=== PATIENT | female | born 1940 | race Caucasian/White ===

== ENCOUNTER 2016-10-26 19:53 | Inpatient (IN) | payer OTHER ==
[~2016-10-26] VITALS: Ht 157.5 cm; Wt 79.8 kg
[~2016-10-26 19:53] MED LIST: ASA81 PO; LEVE500T77 PO; LIP20 PO
[2016-10-26 20:08] VITALS: BP_SYST 147
--- NOTE | 2016-10-26 20:25 | NUR ---
Patient to ER bed 3 to gown for evaluation. Side rails up. Report given to GENE Ventura.
[2016-10-26 20:31] LABS: BILIRUBIN,URINE 1+ (NEGATIVE); BLOOD, URINE 2+ (NEGATIVE); CLARITY/URINE SL HAZY (CLEAR); COLOR,URINE YELLOW (YELLOW); GLUCOSE,URINE NEGATIVE (NEGATIVE); KETONES,URINE TRACE (NEGATIVE); LEUKOCYTE ESTERASE ,URINE 1+ (NEGATIVE); NITRITE, URINE NEGATIVE (NEGATIVE); PH,URINE 5.5 (5.0-8.0); PROTEIN URINE TRACE (NEGATIVE)
--- NOTE | 2016-10-26 20:37 | NUR ---
Patient complains of abdominal pain on and off x 1 week. No bowel movement for 3 days but prior to that patient complaints of diarrhea. Patient reports nausea but no vomiting. Patient is ALOC x 4 and ambulatory. Pain 4/10. No other complaints/injuries per patient or as noted.
[2016-10-26] MEDS ORDERED: NACL 0.9% 1,000 ML IV ONE ×2 (20:41→23:00)
--- NOTE | 2016-10-26 20:41 | NUR ---
Dr. Drivre at bedside.
[2016-10-26] MEDS ORDERED: MORPHINE 4 MG/ML INJ. SYRINGE IVP ONE (20:45)
[2016-10-26] MEDS ORDERED: PROMETHAZINE HCL 25 MG/ML AMP IVP ONE (20:45)
[2016-10-26 20:59] LABS: WBC,URINE 20-50 /HPF (0-3)
[2016-10-26 21:00] LABS: BACTERIA,URINE MODERATE /HPF (None Seen); MUCUS,URINE 3+ /LPF (None Seen); OTHER CASTS, URINE WBC CASTS 1+ /LPF (None Seen)
[2016-10-26 21:29] LABS: BASOPHILS % (AUTO) 0.2 % (0.0-2.0); EOSINOPHILS # (AUTO) 0.1 K/uL (0.0-0.4); EOSINOPHILS % (AUTO) 1.1 % (0.0-4.0); HEMATOCRIT 35.8 % (36-48); HEMOGLOBIN 11.7 g/dL (12.0-16.0); LYMPHOCYTES # (AUTO) 0.9 K/uL (1.0-5.5); MEAN CORPUSCULAR HEMOGLOBIN 27 pg (27-31); MEAN CORPUSCULAR HGB CONC 33 % (32-36); MEAN CORPUSCULAR VOLUME 82 fL (79.0-98.0); MONOCYTES # (AUTO) 0.7 K/uL (0.0-1.0); MONOCYTES % (AUTO) 7.8 % (1.7-9.3); NEUTROPHILS % (AUTO) 80.9 % (40.0-70.0); PLATELET COUNT (AUTO) 368 K/uL (130-430); RED BLOOD CELL COUNT(AUTO) 4.34 MIL/uL (4.2-6.2); RED CELL DISTRIBUTION WIDTH 14.7 % (9.0-15.0); WHITE BLOOD COUNT (AUTO) 8.7 K/uL (4.8-10.8)
[2016-10-26 21:54] LABS: ANION GAP 9 (5-15); CALCIUM 9.8 mg/dL (8.4-11.0); CHLORIDE 103 mmol/L (98-107); CREATININE 1.16 mg/dL (0.55-1.30); GLUCOSE 176 mg/dL (70-99); POTASSIUM 3.7 mmol/L (3.5-5.1); SODIUM SERUM 141 mmol/L (136-145); UREA NITROGEN, BLOOD 15 mg/dL (8-21)
[2016-10-26 21:58] LABS: ALANINE AMINOTRANSFERASE 358 U/L (12-78); ALBUMIN 3.4 g/dL (3.4-4.8); AMYLASE 56 U/L (0-100); ASPARTATE AMINOTRANSFERASE 268 U/L (10-37); INR 1.1 (0.8-1.2); LIPASE 291 U/L (73-393); PROTHROMBIN TIME 11.9 SECS (9.5-12.5); TOTAL BILIRUBIN 1.3 mg/dL (0.0-1.0)
[2016-10-26] MEDS ORDERED: cefTRIAXone 2 GM VIAL ONE ×2 (22:21)
[2016-10-26] MEDS ORDERED: SITA1TAB9 PO (22:49)
[2016-10-26] MEDS ORDERED: LOSA50TA3 PO (22:49)
--- NOTE | 2016-10-26 22:49 | NUR ---
Medication reconciliation completed with information provided by patient. Any prior medication reconciliation on file was reviewed and corrected.
--- NOTE | 2016-10-26 22:53 | NUR ---
Answer the phone to get orders from Dr. Drew and he stated that he will come into see patient. He did not give admitting orders.
[2016-10-26] MEDS ORDERED: PROMETHAZINE HCL 25 MG/ML AMP IVP PRN (23:30)
[2016-10-26] MEDS ORDERED: ACETAMINOPHEN 325 MG TABLET PO PRN (23:30)
[2016-10-26] MEDS ORDERED: DEXTROSE 50% JECT 50 ML DISP.SYRIN IVP PRN (23:30)
[2016-10-26 23:38] VITALS: BP_SYST 141
--- NOTE | 2016-10-26 23:38 | NUR ---
Admission Note Received patient from ER with diagnosis of ABDOMINAL PAIN, QUESTION ABDOMINAL ABCESS, UTI. Initial Plan of Care discussed-patient verbalized understanding. Family at bedside. Oriented to room, call light, pain management and safety.
--- NOTE | 2016-10-26 23:38 | NUR ---
Patient will be admitted to care of Dr. Grimes . Admitted to Med Surg unit. Will go to room 102 B. Belongings list completed. Summary report printed. Report will be given at bedside to GENE Fraser.
--- NOTE | 2016-10-26 23:40 | NUR ---
RN Note Pt was instructed on nothing by mouth except medications and pt verbalized understanding. Skin is warm and dry to touch. No signs or symptoms of hypoglycemia or hyperglycemia noted. Fall and safety precautions are in place. Call light is with pt and bed alarm on. Will continue to monitor pt.
--- NOTE | 2016-10-26 23:55 | NUR ---
CONSULTATION PAGED REASON FOR CONSULTATION:ABDOMINAL PAIN WAS CONSULT CALLED?Y PERSON WHO WAS NOTIFIED:LAURA CONSULTING PHYSICIAN:ERIKA MEDEROS HYDRAULIC TESTER SPECIALTY:ID HYDRAULIC TESTER PHONE NUMBER:[phone]
--- NOTE | 2016-10-26 23:57 | NUR ---
CONSULTATION PAGED REASON FOR CONSULTATION:ABDOMINAL PAIN WAS CONSULT CALLED?Y PERSON WHO WAS NOTIFIED:LAURA CONSULTING PHYSICIAN:STEVIE LOPEZ (FEROZ ASIF CHRISTIAN COUNSELOR) CURVE SAW OPERATOR SPECIALTY:GI CURVE SAW OPERATOR PHONE NUMBER:[phone]
--- NOTE | 2016-10-27 00:13 | NUR ---
Blood Sugar Accucheck 116 and no Insulin coverage noted. Skin remains warm and dry to touch. IVF is infusing well in [facility].
[2016-10-27] MEDS: NACL 0.9% 1,000 ML IV SCH ×2 (00:14→12:32)
--- NOTE | 2016-10-27 02:00 | NUR ---
Rounds Pt is sleeping without any distress noted. IVF is infusing well in [facility]. Call light is with pt and bed alarm is on.
--- NOTE | 2016-10-27 04:00 | NUR ---
Rounds Pt is resting quietly in bed. Fall and safety precautions are in place.
--- NOTE | 2016-10-27 05:46 | NUR ---
CONSULT: CONSULT CALLED FOR DR. MUJICA I SPOKE WITH JAVON. REASON FOR CONSULT: ABD PAIN NUMBER I CALLED: [phone] ALVES
[2016-10-27] MEDS ORDERED: PIPERACILLIN/TAZOBACTAM 4.5 GM/VIAL (ZOSYN) IV ONE (05:59)
[2016-10-27] MEDS: PIPERACILLIN/TAZO 4.5GM/DEX-IS 100 ML IV SCH ×3 (06:00→21:29)
[2016-10-27 06:24] LABS: BASOPHILS % (AUTO) 0.4 % (0.0-2.0); EOSINOPHILS # (AUTO) 0.1 K/uL (0.0-0.4); EOSINOPHILS % (AUTO) 0.8 % (0.0-4.0); HEMATOCRIT 31.8 % (36-48); HEMOGLOBIN 10.4 g/dL (12.0-16.0); LYMPHOCYTES % (AUTO) 12.9 % (20.5-51.5); MEAN CORPUSCULAR HEMOGLOBIN 27 pg (27-31); MEAN CORPUSCULAR HGB CONC 33 % (32-36); MEAN CORPUSCULAR VOLUME 82 fL (79.0-98.0); MONOCYTES # (AUTO) 0.7 K/uL (0.0-1.0); MONOCYTES % (AUTO) 8.7 % (1.7-9.3); NEUTROPHILS # (AUTO) 5.9 K/uL (1.8-7.7); NEUTROPHILS % (AUTO) 77.2 % (40.0-70.0); PLATELET COUNT (AUTO) 324 K/uL (130-430); RED BLOOD CELL COUNT(AUTO) 3.86 MIL/uL (4.2-6.2); RED CELL DISTRIBUTION WIDTH 14.9 % (9.0-15.0); WHITE BLOOD COUNT (AUTO) 7.7 K/uL (4.8-10.8)
[2016-10-27 06:32] LABS: ALANINE AMINOTRANSFERASE 368 U/L (12-78); ALBUMIN 2.8 g/dL (3.4-4.8); ANION GAP 9 (5-15); ASPARTATE AMINOTRANSFERASE 326 U/L (10-37); CALCIUM 8.6 mg/dL (8.4-11.0); CHLORIDE 106 mmol/L (98-107); GLUCOSE 163 mg/dL (70-99); SODIUM SERUM 141 mmol/L (136-145); TOTAL BILIRUBIN 1.3 mg/dL (0.0-1.0); TOTAL PROTEIN, SERUM 6.8 g/dL (6.4-8.3); UREA NITROGEN, BLOOD 11 mg/dL (8-21)
--- NOTE | 2016-10-27 06:34 | NUR ---
Closing Note Pt is resting comfortably in bed. All pt's needs were attended to. No fall or injury noted this shift. Accucheck 148 this AM and no Insulin coverage needed. Skin remains warm and dry to touch. Will endorse to day shift nurse.
--- NOTE | 2016-10-27 08:00 | NUR ---
INITIAL NOTE PT SLEEPING, EASY TO AROUSE, NO S/S OF PAIN OR DISTRESS NOTED, IV TO LAC INTACT AND INFUSING FLUIDS AT ORDERED RATE, NO S/S OF INFILTRATION NOTED, PT AWARE SHE IS NPO EXCEPT MEDICATIONS WITH SIP OF WATER, SCDS IN PLACE, PLAN OF CARE DISCUSSED WITH PATIENT, PT VERBALIZED UNDERSTANDING, PT REORIENTED TO USE OF CALL LIGHT AND IT IS PLACED WITHIN REACH, SAFETY MEASURES IN PLACE, BED IN LOW POSITION AND LOCKED, WILL FOLLOW UP
[2016-10-27 08:02] VITALS: BP_SYST 119
--- NOTE | 2016-10-27 08:30 | NUR ---
DR AMARAL AT BEDSIDE, NEW ORDERS RECEIVED, PT MADE AWARE AND VERBALIZED UNDERSTANDING, WILL CARRY OUT AND FOLLOW UP
--- NOTE | 2016-10-27 09:30 | NUR ---
DR ALVES MAKING ROUNDS
[2016-10-27] MEDS ORDERED: POTASSIUM CHLORIDE 40 MEQ in NS 250 ML IV SCH (09:31)
[2016-10-27] MEDS: PANTOPRAZOLE SODIUM 40 MG TAB PO SCH (09:38)
[2016-10-27] MEDS: levETIRAcetam 500 MG TABLET PO SCH (09:38)
--- NOTE | 2016-10-27 10:00 | NUR ---
ROUNDS PT ASSISTED TO BEDSIDE CHAIR, NO S/S OF DISTRESS OR PAIN, VSS, PT STATES SHE HAS NO OTHER NEEDS AT THIS TIME, WILL FOLLOW UP
--- NOTE | 2016-10-27 10:40 | NUR ---
DR AGUILA MAKING ROUNDS
[2016-10-27 11:34] VITALS: BP_SYST 129
--- NOTE | 2016-10-27 12:00 | NUR ---
ACCUCHECK 121, NO COVERAGE NEEDED, PT TO REMAIN NPO AT THIS TIME, FAMILY AT BEDSIDE, PT AND FAMILY UPDATED ON PLAN OF CARE, VERBALIZED UNDERSTANDING, CALL LIGHT PLACED WITHIN REACH, WILL CONTINUE TO MONITOR
--- NOTE | 2016-10-27 13:00 | NUR ---
PATIENT PICKED UP FOR PROCEDURE, AWAITING RETURN
[2016-10-27 15:57] VITALS: BP_SYST 134
--- NOTE | 2016-10-27 16:00 | NUR ---
PT RETURNED FROM PROCEDURE, PER RADIOLOGIST, PROCEDURE IS INCOMPLETE AND TECH WILL RETURN TO GET PATIENT IN A FEW HOURS, WILL ADMINISTER IV ANTIBIOTICS, PT SITUATED IN BED, CALL LIGHT WITHIN REACH, WILL FOLLOW UP
[2016-10-27] MEDS: metroNIDAZOLE 250 mg/NS 50 ML IV SCH ×2 (16:06→21:29)
--- NOTE | 2016-10-27 17:30 | NUR ---
ACCUCHECK 109, NO COVERAGE NEEDED PER SLIDING SCALE. PT AWAKE, FAMILY AT BEDSIDE, IV FLUIDS INFUSING TO RIGHT HAND, NEW IV SITE, PATENT AND INTACT, WILL CONTINUE TO MONITOR
--- NOTE | 2016-10-27 18:40 | NUR ---
DR MUJICA AT BEDSIDE, NEW ORDERS RECEIVED AND CARRIED OUT, WILL ENDORSE TO FOLLOWING SHIFT TO FOLLOW UP ON ORDERS.
--- NOTE | 2016-10-27 19:00 | NUR ---
CLOSING NOTE PT SITTING UP IN BED, NO COMPLAINT OF PAIN OR DISCOMFORT, IV FLUIDS INFUSING TO RIGHT HAND, SITE PATENT AND INTACT, NO S/S OF INFILTRATION, ALL NEEDS ATTENDED TO THROUGH OUT SHIFT, SAFETY MEASURES MAINTAINED, DIET ADVANCED TO CLEAR LIQUIDS NO REDS, CALL LIGHT WITHIN REACH, BED IN LOW POSITION AND LOCKED, WILL GIVE REPORT TO FOLLOWING SHIFT.
[2016-10-27 19:05] VITALS: BP_SYST 136
--- NOTE | 2016-10-27 19:05 | NUR ---
Initial Round Received patient in bed awake, alert oriented x4. V/S are WNL. No s/s of any pain or distress noted. IV noted to R hand g 22, no infiltrate and with good blood return. All extremities are strong BRP. Discussed plan of care with pt and verbalized understanding. Bed in low position with call light within reach, will cont to monitor.
--- NOTE | 2016-10-27 21:05 | NUR ---
Rounds Patient is awake with family at bedside. No s/s of any distress noted. Call light within reach, will cont to monitor.
[2016-10-27] MEDS: ATORVASTATIN 20 MG TABLET PO SCH (21:28)
[2016-10-27] MEDS: LOSARTAN POTASSIUM 50 MG TABLET (COZAAR) PO SCH (21:29)
--- NOTE | 2016-10-28 00:07 | NUR ---
Assisted to B/R Assisted to b/r and safely back to bed. No s/s of any distress noted. Call light within reach, will cont to monitor.
[2016-10-28 00:16] VITALS: BP_SYST 133
--- NOTE | 2016-10-28 03:43 | NUR ---
Assisted to B/R Assisted to b/r and safely back to bed. No s/s of pain or any distress noted. Left bed in low position with call light within reach, will cont to monitor.
[2016-10-28 04:38] VITALS: BP_SYST 130
[2016-10-28] MEDS: PIPERACILLIN/TAZO 4.5GM/DEX-IS 100 ML IV SCH ×3 (05:10→23:25)
[2016-10-28] MEDS: metroNIDAZOLE 250 mg/NS 50 ML IV SCH ×3 (05:10→23:24)
[2016-10-28] MEDS: NACL 0.9% 1,000 ML IV SCH ×2 (06:09→15:12)
--- NOTE | 2016-10-28 06:45 | NUR ---
Final Rounds Patient is resting at this time. No s/s of pain or any distress noted. V/S are wnl. All needs met and anticipated by noc nurses. Bed in low position with side rails up x2. Call light within reach, will endorse.
[2016-10-28 07:10] LABS: ALBUMIN 2.9 g/dL (3.4-4.8); BILIRUBIN,DIRECT 0.4 mg/dL (0.0-0.3); TOTAL BILIRUBIN 0.7 mg/dL (0.0-1.0); TOTAL PROTEIN, SERUM 6.3 g/dL (6.4-8.3)
[2016-10-28 08:00] VITALS: BP_SYST 128
--- NOTE | 2016-10-28 08:00 | NUR ---
INITIAL NOTE PT RESTING, EASY TO AROUSE, ALERT AND ORIENTED X4, NO C/O SOB, PAIN OR S/S OF DISTRESS, VSS, IV TO RIGHT HAND INTACT, NO S/S OF INFILTRATION NOTED, IV FLUIDS INFUSING AT ORDERED RATE, PLAN OF CARE DISCUSSED, PATIENT VERBALIZED UNDERSTANDING, PT REORIENTED TO USE OF CALL LIGHT AND IT IS PLACED WITHIN REACH, SAFETY MEASURES IN PLACE, BED IN LOW POSITION AND LOCKED, WILL FOLLOW UP
[2016-10-28] MEDS: PANTOPRAZOLE SODIUM 40 MG TAB PO SCH (08:54)
[2016-10-28] MEDS: levETIRAcetam 500 MG TABLET PO SCH (08:54)
--- NOTE | 2016-10-28 09:00 | NUR ---
DR ALVES MAKING ROUNDS, NEW ORDER RECEIVED, WILL CARRY OUT AND CONTINUE TO MONITOR
[2016-10-28 09:25] LABS: ANION GAP 12 (5-15); CALCIUM 8.4 mg/dL (8.4-11.0); CHLORIDE 108 mmol/L (98-107); GLUCOSE 119 mg/dL (70-99); POTASSIUM 3.5 mmol/L (3.5-5.1); SODIUM SERUM 143 mmol/L (136-145); UREA NITROGEN, BLOOD 7 mg/dL (8-21)
--- NOTE | 2016-10-28 10:15 | NUR ---
ROUNDS PT SITTING UP IN BED, FAMILY AT BEDSIDE, VSS, NO C/O OF PAIN, PT STATES SHE HAS NO NEEDS AT THIS TIME, PT AWARE SHE IS TO CONTINUE BEING NPO PER DR ALVES, SAFETY MEASURES IN PLACE, CALL LIGHT WITHIN REACH, WILL FOLLOW UP
--- NOTE | 2016-10-28 12:00 | NUR ---
ACCUCHECK 102, NO COVERAGE NEEDED PER SLIDING SCALE
--- NOTE | 2016-10-28 12:30 | NUR ---
DR MUJICA AT BEDSIDE, PATIENT AND MD DISCUSSED PLAN OF CARE AND AGREED, PT VERBALIZED UNDERSTANDING OF SURGERY, WILL FOLLOW UP WITH APPROPRIATE PAPER WORK
[2016-10-28 12:38] VITALS: BP_SYST 127
--- NOTE | 2016-10-28 14:30 | NUR ---
ROUNDS PT AWAKE, FAMILY AT BEDSIDE, NO C/O PAIN OR DISTRESS, IV ANTIBIOTICS INFUSING, IV SITE INTACT, NO S/S OF INFILTRATION, WILL CONTINUE WITH SURGERY PREP. SAFETY MEASURES IN PLACE, CALL LIGHT WITHIN REACH, WILL CONTINUE TO MONITOR
[2016-10-28 16:13] VITALS: BP_SYST 142
--- NOTE | 2016-10-28 16:34 | NUR ---
ROUNDS PT SITTING UP IN BED, FAMILY AT BEDSIDE, CALM DEMEANOR, NO S/S OF DISTRESS OR PAIN, PT STATES SHE HAS NO NEEDS AT THIS TIME, SAFETY MEASURES IN PLACE, CALL LIGHT WITHIN REACH, WILL CONTINUE TO MONITOR
[2016-10-28] MEDS ORDERED: DEXAMETHASONE SOD PHOSPHATE 4 MG/ML VIAL ONE (17:11)
[2016-10-28] MEDS ORDERED: IOHEXOL 0 ML IV ONE (17:14)
--- NOTE | 2016-10-28 17:14 | NUR ---
PATIENT PICKED UP FOR PROCEDURE, VSS, PT CALM, NO C/O SOB OR PAIN, FAMILY AT BEDSIDE, IV TO RIGHT HAND INTACT, WILL AWAIT PATIENTS RETURN.
[2016-10-28] MEDS ORDERED: IOHEXOL 50 ML IV ONE (17:16)
[2016-10-28] MEDS ORDERED: METOCLOPRAMIDE HCL 10 MG/2 ML VIAL IVP ONE (17:26)
[2016-10-28] MEDS ORDERED: LR 1,000 ML IV.SOLN IV ONE (17:26)
[2016-10-28] MEDS ORDERED: ROCURONIUM BROMIDE 10 MG/ML (ZEMURON) IV ONE (17:26)
[2016-10-28] MEDS ORDERED: NS IRRIG SOLN 1000 ML IR ONE (17:26)
[2016-10-28] MEDS ORDERED: KETOROLAC TROMETHAMINE 30 MG VIAL IVP ONE (17:26)
[2016-10-28] MEDS ORDERED: MEPERIDINE HCL/PF 100 MG/ML AMP IM ONE (17:26)
[2016-10-28] MEDS ORDERED: fentaNYL CITRATE 250 MCG/5 ML AMP IV ONE (17:26)
[2016-10-28] MEDS ORDERED: MIDAZOLAM HCL 5 MG/5 ML VIAL IVP ONE (17:26)
[2016-10-28] MEDS ORDERED: SEVOFLURANE 15 MIN GAS INH ONE (17:26)
[2016-10-28] MEDS ORDERED: LR 1,000 ML IV ONE (17:33)
[2016-10-28] MEDS ORDERED: fentaNYL CITRATE/PF 100 MCG/2 ML AMP IVP PRN (17:45)
[2016-10-28] MEDS ORDERED: ONDANSETRON HCL 4 MG/2 ML VIAL IVP PRN ×2 (17:45→20:45)
[2016-10-28] MEDS ORDERED: NALBUPHINE HCL 10 MG/ML AMP IVP PRN (17:45)
[2016-10-28] MEDS ORDERED: NALOXONE HCL 0.4 MG/ML AMP (NARCAN) IVP PRN (17:45)
[2016-10-28] MEDS ORDERED: ePHEDrine sulfate 50 MG/ML VIAL IVP PRN (17:45)
[2016-10-28] MEDS ORDERED: DIPHENHYDRAMINE INJ 50 MG/ML VIAL IVP PRN (17:45)
[2016-10-28 18:01] VITALS: BP_SYST 142
--- NOTE | 2016-10-28 18:29 | NUR ---
PATIENT STILL IN O.R, WILL GIVE REPORT TO FOLLOWING SHIFT, UPDATE ON PLAN OF CARE AND HISTORY
--- NOTE | 2016-10-28 21:50 | NUR ---
OPENING NOTES: pt. came back from OR S/P laparoscopic cholecystectomy, with 4 small dressing and J jewell intact on rt. side of abdomen. pt. awake, alert and oriented.IVF on rt. hand. O2 @ 2l/nc, O2 sat around 95%, instructed pt. on deep breathing. VS will be checked every 15 min x 4 the q 30 min x 1 hr. REGIONAL BUSINESS MANAGER Sirena informed. pt. will be able to get some sips of H2O. call light within reach.
[2016-10-28] MEDS: LOSARTAN POTASSIUM 50 MG TABLET (COZAAR) PO SCH (23:23)
[2016-10-28] MEDS: ATORVASTATIN 20 MG TABLET PO SCH (23:23)
--- NOTE | 2016-10-28 23:30 | NUR ---
NOTES: pt. been dozing off, awakened for schedule po meds and IV antibiotics. switched IV to NS @ 75 cc/hr. pt. tolerating oral fluids. pt. voided per bedpan.
[2016-10-28] MEDS: INSULIN REGULAR, HUMAN 100 UNITS/ML, 10 ML VIAL (novoLIN R) SUBCUT PRN (23:51)
--- NOTE | 2016-10-29 00:30 | NUR ---
NOTES: pt. been dozing on and off, HOB elevated, reminded to do deep breathing exercise. IVF patent.
--- NOTE | 2016-10-29 02:30 | NUR ---
NOTES: pt. out of bed with INSPECTOR RUBBER STAMP DIE's assistance, noted post-op pain after ambulating, back to bed. checked for any pain and said it's ok now, only when I move. repositioned in bed. check E-mar, no prn pain med order except rylee Espino and need to call MD and informed pt. will call in am for orders.
[2016-10-29 04:25] VITALS: BP_SYST 126
--- NOTE | 2016-10-29 04:30 | NUR ---
NOTES: pt. able to sleep when checked. continue to monitor.
[2016-10-29] MEDS: NACL 0.9% 1,000 ML IV SCH ×2 (05:53→17:52)
--- NOTE | 2016-10-29 05:53 | NUR ---
PAGED PAGED YISEL BENDER AT [phone] SPOKE WITH CHIDI.
--- NOTE | 2016-10-29 06:00 | NUR ---
NOTES: awakened and c/o post abdominal pain 11/06, will call MD, informed pt. called exchange of Dr.Mariano ted royal.
[2016-10-29] MEDS: PIPERACILLIN/TAZO 4.5GM/DEX-IS 100 ML IV SCH ×3 (06:06→23:03)
[2016-10-29] MEDS ORDERED: MORPHINE 2 MG/ML INJ. SYRINGE IVP PRN (06:15)
[2016-10-29] MEDS: metroNIDAZOLE 250 mg/NS 50 ML IV SCH ×2 (06:15→15:04)
--- NOTE | 2016-10-29 06:15 | NUR ---
NOTES: Dr. Al called and informed him about no medications prn for post op pain, orders made.
[2016-10-29] MEDS: HYDROcodone/ACETAMIN 5-325 MG TAB (NORCO/ VICODIN) PO PRN ×4 (06:29→20:28)
--- NOTE | 2016-10-29 06:30 | NUR ---
CLOSING NOTES: PT. ASSISTED TO RESTROOM AND VOIDED. DUE IV ANTIBIOTICS GIVEN. IVF PATENT, ABDOMINAL DRESSING INTACT WITH J-BAIN AND DRAINED AROUND 120 CC SEROUS BLOODY DRAINAGE. UP IN CHAIR. CALL LIGHT WITHIN REACH. STARTED ON USE OF INCENTIVE SPIROMETER, ENCOURAGED DEEP BREATHING EXERCISE.
--- NOTE | 2016-10-29 07:30 | NUR ---
endorsed pt. to incoming shift with nurse Marino. pt. back to bed. for further care and assistance.
[2016-10-29 08:00] VITALS: BP_SYST 122
--- NOTE | 2016-10-29 08:00 | NUR ---
OPENING NOTE PT IS POST OP DAY 1 FOR A LAPAROSCOPIC CHOLOSCOPY. SHE IS ALERT AND ORIENTED X 4 AND IS IN MODERATE PAIN (4/10) AT INCISION SITE. PT HAS A ZAHIRA DRAIN WHICH IS FUNCTIONING AND 4 SMALL DRESSINGS ON HER ABDOMEN FROM THE PROCEDURE. BOWEL SOUNDS PRESENT AND ACTIVE IN ALL QUADRANTS. 22 GAUGE IV IN RIGHT HAND IS PATENT. EDUCATED PT ON INSPIRATIONAL SPIROMETER WHICH IS AT BEDSIDE, AND I WILL CONTINUE TO MONITOR HER PROGRESS.
--- NOTE | 2016-10-29 08:53 | NUR ---
Nutrition Update Josué Scale 17 noted. Pt admitted for abd pain question abd abscess, UTI. Diet: clear liquid, no red BMI: 32.1 kg/m2 RD to follow per nutrition care standards.
--- NOTE | 2016-10-29 10:00 | NUR ---
ROUNDS PT IS SITTING UP IN BED, SPEAKING TO HER COUSIN WHO IS AT BEDSIDE. PT SAID SHE IS COMFORTABLE. SHE DEMONSTRATED USE OF THE INCENTIVE SPIROMETER FOR ME AND COMPLAINED HER PAIN INCREASES WHEN SHE USES THE DEVICE. i WILL CONTINUE TO MONITOR HER PAIN THROUGHOUT THE SHIFT.
[2016-10-29] MEDS: levETIRAcetam 500 MG TABLET PO SCH (10:39)
[2016-10-29] MEDS: PANTOPRAZOLE SODIUM 40 MG TAB PO SCH (10:39)
[2016-10-29 12:00] VITALS: BP_SYST 115
--- NOTE | 2016-10-29 12:36 | NUR ---
pt transported to radiology for scheduled mri
--- NOTE | 2016-10-29 14:00 | NUR ---
ROUNDS PT STABLE, SITTING UP IN BED AND IS TALKING TO A FAMILY MEMBER WHO IS AT BEDSIDE. PT STATED HER PAIN IS BEING MANAGED WITH THE PRN ANALGESICS BUT IS COMPLAINING OF POST-SURGICAL ABDOMINAL BLOATING
--- NOTE | 2016-10-29 16:00 | NUR ---
ROUNDS PT IS RESTING IN BED AND APPEARS TO BE READING SOMETHING HER FAMILY MEMBER PROVIDED
[2016-10-29 16:27] VITALS: BP_SYST 115
[2016-10-29] MEDS: INSULIN REGULAR, HUMAN 100 UNITS/ML, 10 ML VIAL (novoLIN R) SUBCUT PRN (18:12)
--- NOTE | 2016-10-29 18:36 | NUR ---
JOSUÉ SCALE EVALUATION: Patient evaluated for a low Josué score of 13. Patient was awake, alert, oriented and received in a Jackie bed with an Isoflex CARLO mattress with low air loss therapy initiated. Patient is able to turn independently and ambulate. Skin is fair: Abdominal incisions have clean, dry and intact dressings. Recommend encourage and assist patient as needed with repositioning every 2 hours with pillow support and off-load pressure areas with pillows for pressure re-distribution. Use moisture barrier cream on buttocks and other moisture susceptible areas QID and as needed for soiling. Perform skin care and monitor skin integrity Q shift.
--- NOTE | 2016-10-29 19:00 | NUR ---
CLOSING NOTE PT IS SITTING UP IN BED, SPEAKING TO HER WHO IS AT BEDSIDE. VS STABLE AND SHE REPORTS ONLY MILD PAIN WHICH IS BEING MANAGED WITH THE PRN ANALGESICS. IV IS PATENT WITH RESISTANCE, WILL ENDORSE POTENTIAL NEED TO CHANGE IV SITES WITH PM NURSE.
--- NOTE | 2016-10-29 19:15 | NUR ---
OPENING NOTES PATIENT IS SITTING AT BEDSIDE, AOX4. NO ACUTE S/S OF DISTRESS NOTED. ZAHIRA DRAIN IN PLACE AND DRAINING. NASAL CANNULA IN PLACE. IV PATENT AND INFUSING WITH NO SIGNS OF INFILTRATION NOTED. WILL CONTINUE TO MONITOR. CALL LIGHT WITHIN REACH.
[2016-10-29 20:00] VITALS: BP_SYST 135
--- NOTE | 2016-10-29 20:28 | NUR ---
pain patient complaining of right abdominal pain 6/10 will administer medication per orders.
[2016-10-29] MEDS: LOSARTAN POTASSIUM 50 MG TABLET (COZAAR) PO SCH (23:04)
[2016-10-29] MEDS: ATORVASTATIN 20 MG TABLET PO SCH (23:05)
--- NOTE | 2016-10-29 23:47 | NUR ---
PAIN PATIENT COMPLAINING OF RIGHT ABDOMINAL PAIN. PT. EDUCATED THAT PAIN MEDICATION CAN ONLY BE GIVEN EVERY FOUR HOURS AND CANNOT BE GIVEN UNTIL 0030. PT. VERBALIZED UNDERSTANDING. PT. PROVIDED A COOL CLOTH FOR COMFORT.
[2016-10-30 00:12] VITALS: BP_SYST 130
[2016-10-30] MEDS: metroNIDAZOLE 250 mg/NS 50 ML IV SCH ×4 (00:51→21:22)
--- NOTE | 2016-10-30 00:55 | NUR ---
BLOOD SUGAR 149, NO COVERAGE REQUIRED. ZAHIRA DRAINED OF 20ML RED FLUID. PATIENT STABLE, NO CHANGE IN CONDITION. FALL PRECAUTIONS IN PLACE, CALL LIGHT WITHIN REACH. WILL CONTINUE TO MONITOR.
--- NOTE | 2016-10-30 03:01 | NUR ---
RN ROUNDS ASSISTED PT. TO BEDSIDE COMMODE. IV PATENT AND INFUSING. NO ACUTE S/S OF DISTRESS NOTED. INCISIONS NOT WEEPING. DRESSINGS, IN TACT. FALL PRECAUTIONS IN PLACE. CALL LIGHT WITHIN REACH.
[2016-10-30 04:15] VITALS: BP_SYST 143
--- NOTE | 2016-10-30 05:00 | NUR ---
RN ROUNDS PATIENT SLEEPING COMFORTABLY WITH VISIBLE RISE AND FALL OF CHEST NOTED. NO ACUTE S/S OF DISTRESS. FALL PRECAUTIONS IN PLACE, CALL LIGHT WITHIN REACH.
[2016-10-30 06:59] LABS: BASOPHILS % (AUTO) 0.2 % (0.0-2.0); EOSINOPHILS # (AUTO) 0.2 K/uL (0.0-0.4); EOSINOPHILS % (AUTO) 1.3 % (0.0-4.0); HEMATOCRIT 31.8 % (36-48); HEMOGLOBIN 10.3 g/dL (12.0-16.0); LYMPHOCYTES # (AUTO) 1.1 K/uL (1.0-5.5); LYMPHOCYTES % (AUTO) 8.1 % (20.5-51.5); MEAN CORPUSCULAR HEMOGLOBIN 27 pg (27-31); MEAN CORPUSCULAR HGB CONC 33 % (32-36); MEAN CORPUSCULAR VOLUME 82 fL (79.0-98.0); MONOCYTES # (AUTO) 0.8 K/uL (0.0-1.0); MONOCYTES % (AUTO) 6.2 % (1.7-9.3); NEUTROPHILS # (AUTO) 11.1 K/uL (1.8-7.7); NEUTROPHILS % (AUTO) 84.2 % (40.0-70.0); PLATELET COUNT (AUTO) 331 K/uL (130-430); RED BLOOD CELL COUNT(AUTO) 3.88 MIL/uL (4.2-6.2); RED CELL DISTRIBUTION WIDTH 15.2 % (9.0-15.0); WHITE BLOOD COUNT (AUTO) 13.2 K/uL (4.8-10.8)
[2016-10-30 08:00] VITALS: BP_SYST 162
--- NOTE | 2016-10-30 08:00 | NUR ---
OPENING NOTES PT IS SCHEDULED FOR A ERCP PROCEDURE AT [facility] TODAY, SO SHE IS NPO AT THIS TIME. VS STABLE AND PT IS COMFORTABLE, THOUGH SHE SAID SHE IS NERVOUS ABOUT THE PROCEDURE. i EDUCATED HER ON WHAT TO EXPECT POST OP, ALONG WITH HER WHO WAS AT BEDSIDE.
[2016-10-30] MEDS: levETIRAcetam 500 MG TABLET PO SCH (09:00)
[2016-10-30] MEDS: NACL 0.9% 1,000 ML IV SCH ×2 (09:00→22:42)
[2016-10-30] MEDS: PANTOPRAZOLE SODIUM 40 MG TAB PO SCH (09:00)
--- NOTE | 2016-10-30 10:00 | NUR ---
ROUNDS PT IS RESTING IN BED AND STATES SHE IS COMFORTABLE. HER IS STILL AT BEDSIDE
[2016-10-30 10:56] LABS: ALANINE AMINOTRANSFERASE 148 U/L (12-78); ANION GAP 12 (5-15); ASPARTATE AMINOTRANSFERASE 43 U/L (10-37); CALCIUM 8.7 mg/dL (8.4-11.0); CHLORIDE 105 mmol/L (98-107); CREATININE 0.86 mg/dL (0.55-1.30); GLUCOSE 130 mg/dL (70-99); SODIUM SERUM 140 mmol/L (136-145); TOTAL BILIRUBIN 0.7 mg/dL (0.0-1.0); TOTAL PROTEIN, SERUM 7.3 g/dL (6.4-8.3); UREA NITROGEN, BLOOD 7 mg/dL (8-21)
[2016-10-30 11:08] LABS: POTASSIUM 2.9 mmol/L (3.5-5.1)
--- NOTE | 2016-10-30 11:18 | NUR ---
PAGED DR. MORELOS AT [phone] FOR CRITICAL RESULT VALUES
[2016-10-30] MEDS: PIPERACILLIN/TAZO 4.5GM/DEX-IS 100 ML IV SCH ×3 (11:32→22:42)
--- NOTE | 2016-10-30 11:57 | NUR ---
ROUNDS/TRANSFER TO GI PT VS IS STABLE AND SHE IS PREPARED FOR Sx GI LAB TEAM VERIFIED VITALS AND TRANSPORTED THE PT FOR SCHEDULED ERCP PROCEDURE.
[2016-10-30] MEDS ORDERED: PROPOFOL 200MG/ 20ML VIAL (DIPRIVAN) IV ONE (12:00)
[2016-10-30] MEDS ORDERED: MIDAZOLAM HCL 5 MG/5 ML VIAL IVP ONE (12:00)
[2016-10-30] MEDS ORDERED: NS IRRIG SOLN 1000 ML IR ONE (12:00)
[2016-10-30] MEDS ORDERED: IOHEXOL 50 ML IV ONE (13:02)
--- NOTE | 2016-10-30 14:05 | NUR ---
ROUNDS/PT RETURNED FROM GI GI NURSE REPORTED PT DID NOT UNDERGO PROCEDURE DUE TO MALFUNCTIONING EQUIPMENT. PT IS DROWSY BUT ALERT AND ORIENTED X 4 WITH NO COMPLAINT OF PAIN. VS STABLE, SO I ADMINISTERED HER 1400 IV MEDS, POSITIONED HER FOR COMFORT, AND WILL ALLOW HER TO REST. PT AT BEDSIDE.
--- NOTE | 2016-10-30 16:00 | NUR ---
ROUNDS PT IS RESTING IN BED, VS STABLE
[2016-10-30 16:14] VITALS: BP_SYST 152
[2016-10-30] MEDS ORDERED: POTASSIUM CHLORIDE IV ONE (16:45)
[2016-10-30] MEDS ORDERED: LIDOCAINE JECT IV ONE (16:45)
[2016-10-30] MEDS ORDERED: NS IV ONE (16:45)
[2016-10-30] MEDS: INSULIN REGULAR, HUMAN 100 UNITS/ML, 10 ML VIAL (novoLIN R) SUBCUT PRN (17:22)
--- NOTE | 2016-10-30 19:00 | NUR ---
CLOSING NOTE/DR MUJICA AT BEDSIDE PT IS SITTING UP IN BED, NOTED PT DRESSING AT ZAHIRA DRAIN SITE IS LEAKING AND DRESSING IS SOILED. ENDORSED TO PM NURSE TO CHANGE DRESSING
[2016-10-30 20:00] VITALS: BP_SYST 148
--- NOTE | 2016-10-30 20:00 | NUR ---
Initial Notes Received patient resting in bed, awake, alert, oriented, visitor at bedside. Patient denies any acute distress or pain at this time. Breathing is even and unlabored on room air. IV site patent/clean/dry. Multiple surgical incisions noted to abdominal wound, clean/dry, closed with steri-strips. ZAHIRA noted to right lower abdomen, draining serosanguineous drainage to compression. Dressing changed due to being soiled. Educated patient on use of call light for assistance and fall precautions, patient verbalized understanding. Call light in hand, will continue to monitor.
[2016-10-30] MEDS: ATORVASTATIN 20 MG TABLET PO SCH (21:22)
[2016-10-30] MEDS: LOSARTAN POTASSIUM 50 MG TABLET (COZAAR) PO SCH (21:22)
--- NOTE | 2016-10-30 22:10 | NUR ---
Rounds Patient resting in bed, awake watching TV. Patient denies any acute distress or pain at this time. Breathing is even and unlabored. IV site patent/clean/dry. ZAHIRA draining to compression. Needs addressed. Call light in hand, will continue to monitor.
[2016-10-30 23:55] VITALS: BP_SYST 150
--- NOTE | 2016-10-31 | NUR ---
Rounds Patient resting in bed with eyes closed, easily aroused. Patient denies any acute distress or pain at this time. Breathing is even and unlabored. IV site patent/clean/dry. Assisted patient with toileting needs. Call light in hand, will continue to monitor.
--- NOTE | 2016-10-31 02:15 | NUR ---
Rounds Patient resting in bed with eyes closed. No acute distress noted, breathing is even and unlabored. IV site patent/clean/dry. ZAHIRA draining to compression. Will continue to monitor.
--- NOTE | 2016-10-31 04:00 | NUR ---
Rounds Patient resting in bed, awake. Patient denies any acute distress or pain at this time. Breathing is even and unlabored. IV site patent/clean/dry. ZAHIRA dressing changed due to soiling, draining to compression. Assisted patient to bathroom. Call light in hand, will continue to monitor.
[2016-10-31 04:10] VITALS: BP_SYST 158
[2016-10-31] MEDS: metroNIDAZOLE 250 mg/NS 50 ML IV SCH ×3 (05:09→22:20)
[2016-10-31] MEDS: PIPERACILLIN/TAZO 4.5GM/DEX-IS 100 ML IV SCH ×3 (06:12→21:04)
--- NOTE | 2016-10-31 06:31 | NUR ---
Closing Notes Patient resting in bed, awake. Patient denies any acute distress or pain at this time. Breathing is even and unlabored. IV site patent/clean/dry, no S/S infection/infiltration noted. ZAHIRA draining to compression, dressing clean/dry/intact, total ZAHIRA output 80ml for shift. Needs addressed throughout shift. Call light in hand, fall precautions in place. Will continue to monitor for changes and safety, and endorse all patient care/needs to oncoming nurse.
[2016-10-31 06:32] LABS: BASOPHILS # (AUTO) 0.2 K/uL (0.0-0.2); BASOPHILS % (AUTO) 1.2 % (0.0-2.0); EOSINOPHILS % (AUTO) 0.2 % (0.0-4.0); LYMPHOCYTES # (AUTO) 1.1 K/uL (1.0-5.5)
[2016-10-31 06:49] LABS: HEMATOCRIT 29.4 % (36-48); HEMOGLOBIN 9.6 g/dL (12.0-16.0); LYMPHOCYTES % (AUTO) 8.6 % (20.5-51.5); MEAN CORPUSCULAR HEMOGLOBIN 27 pg (27-31); MEAN CORPUSCULAR HGB CONC 33 % (32-36); MEAN CORPUSCULAR VOLUME 82 fL (79.0-98.0); MONOCYTES # (AUTO) 0.9 K/uL (0.0-1.0); MONOCYTES % (AUTO) 6.9 % (1.7-9.3); NEUTROPHILS % (AUTO) 83.1 % (40.0-70.0); PLATELET COUNT (AUTO) 312 K/uL (130-430); RED BLOOD CELL COUNT(AUTO) 3.58 MIL/uL (4.2-6.2); RED CELL DISTRIBUTION WIDTH 15.3 % (9.0-15.0); WHITE BLOOD COUNT (AUTO) 13.2 K/uL (4.8-10.8)
--- NOTE | 2016-10-31 07:57 | NUR ---
OPENING NOTE PT IS SCHEDULED FOR A ERCP TOMORROW. SHE IS SITTING UP IN BED, A/O X 4, AND STATES SHE IS COMFORTABLE ASIDE FROM PAIN 09/06 AT HER INCISION SITE. PT HAS A NON-PRODUCTIVE COUGH BUT HER LUNG SOUNDS ARE CLEAR BILATERALLY. ZAHIRA DRAIN INCISION SITE IS LEAKING, DR. MUJICA ASSESSED THE SITE YESTERDAY WITH NO NEW ORDERS.
[2016-10-31 08:03] VITALS: BP_SYST 152
[2016-10-31 08:05] LABS: ANION GAP 10 (5-15); CHLORIDE 106 mmol/L (98-107); POTASSIUM 3.2 mmol/L (3.5-5.1); SODIUM SERUM 140 mmol/L (136-145)
[2016-10-31 08:06] LABS: CALCIUM 8.4 mg/dL (8.4-11.0); CREATININE 0.73 mg/dL (0.55-1.30); GLUCOSE 131 mg/dL (70-99); UREA NITROGEN, BLOOD 6 mg/dL (8-21)
[2016-10-31 08:10] LABS: ALANINE AMINOTRANSFERASE 108 U/L (12-78); ASPARTATE AMINOTRANSFERASE 34 U/L (10-37); TOTAL BILIRUBIN 0.5 mg/dL (0.0-1.0); TOTAL PROTEIN, SERUM 6.7 g/dL (6.4-8.3)
[2016-10-31 08:11] LABS: ALBUMIN 2.6 g/dL (3.4-4.8)
[2016-10-31] MEDS: levETIRAcetam 500 MG TABLET PO SCH (09:34)
[2016-10-31] MEDS: PANTOPRAZOLE SODIUM 40 MG TAB PO SCH (09:35)
[2016-10-31] MEDS: NACL 0.9% 1,000 ML IV SCH ×2 (09:52→17:44)
--- NOTE | 2016-10-31 10:00 | NUR ---
ROUNDS PT IS SITTING UP IN A CHAIR AT BEDSIDE AND STATES SHE IS COMFORTABLE.
[2016-10-31 12:16] VITALS: BP_SYST 148
--- NOTE | 2016-10-31 12:30 | NUR ---
ROUNDS PT IS SITTING UP IN BED, EATING HER LUNCH. SHE IS TOLERATING CLEAR LIQUID DIET WILL WITH NO REPORT OF NAUSEA
[2016-10-31] MEDS: HYDROcodone/ACETAMIN 5-325 MG TAB (NORCO/ VICODIN) PO PRN ×2 (13:51→22:21)
--- NOTE | 2016-10-31 14:37 | NUR ---
ROUNDS/ZOSYN NOT SCANNED PT IS SITTING UP IN BED, READING A MAGAZINE, SHE IS COMFORTABLE WITH INCISIONAL PAIN PAIN 08/06 . MANUALLY ENTERED THE Minka ZOSYN BECAUSE THE SCANNER ISN'T FUNCTIOING AND ALL OTHER COMPUTERS ARE NOT FUNCTIONING OR IN USE
--- NOTE | 2016-10-31 16:31 | NUR ---
ROUNDS PT SITTING UP IN BED TALKING TO A FRIEND WHO IS AT BEDSIDE. SHE STATES SHE IS COMFORTABLE AND WITHOUT PAIN.
[2016-10-31 16:40] VITALS: BP_SYST 166
--- NOTE | 2016-10-31 18:30 | NUR ---
CLOSING NOTE PT IS CLEAN, DRY AND COMFORTABLE. VS STABLE AND SHE IS NOT COMPLAINING OF PAIN. HER RIGHT HAND IV IS BEGINNING TO WEEP SO THE RESOURCE NURSE WILL START A NEW ACCESS.
[2016-10-31 19:45] VITALS: BP_SYST 154
--- NOTE | 2016-10-31 20:00 | NUR ---
Initial Notes Received patient sitting up in bed, awake, alert, oriented, visitor at bedside. Patient denies any acute distress or pain at this time. Vital signs stable. Breathing is even and unlabored on room air. Received patient with leaking IV site. Site discontinued. New IV access started by Juany RN, right hand #24, patent/clean/dry, good blood return noted, no S/S infiltration. Four abdominal surgical incisions noted, clean/dry, closed with steri-strips. ZAHIRA drain noted right lower abdomen, serosanguineous drainage to compression. ZAHIRA drain dressing changed due to soiling. Educated patient on use of call light for assistance and fall precautions, patient verbalized understanding. Call light in hand, will continue to monitor.
[2016-10-31] MEDS: ATORVASTATIN 20 MG TABLET PO SCH (21:04)
[2016-10-31] MEDS: LOSARTAN POTASSIUM 50 MG TABLET (COZAAR) PO SCH (21:04)
--- NOTE | 2016-10-31 22:08 | NUR ---
Rounds Patient resting in bed, awake watching TV. Patient denies any acute distress at this time. Breathing is even and unlabored. IV site patent/clean/dry. Consent for ERCP signed and charted, all questions answered. Needs addressed, call light in hand, will continue to monitor.
--- NOTE | 2016-11-01 | NUR ---
Round, NPO post midnight Patient resting in bed with eyes closed, easily aroused. Patient denies any acute distress or pain at this time. Breathing is even and unlabored. IV site patent/clean/dry. ZAHIRA draining to compression. Patient verbalized understanding of NPO status. Needs addressed, call light in hand, will continue to monitor.
[2016-11-01 00:49] VITALS: BP_SYST 152
--- NOTE | 2016-11-01 02:15 | NUR ---
Rounds Patient resting in bed with eyes closed. No acute distress noted, breathing is even and unlabored. Call light in hand, will continue to monitor.
--- NOTE | 2016-11-01 04:21 | NUR ---
Rounds Patient resting in bed, awake. Patient denies any acute distress or pain at this time. Breathing is even and unlabored. IV site patent/clean/dry. ZAHIRA draining to compression. Needs addressed. Call light in hand, will continue to monitor.
[2016-11-01 04:56] VITALS: BP_SYST 161
[2016-11-01] MEDS: PIPERACILLIN/TAZO 4.5GM/DEX-IS 100 ML IV SCH ×2 (05:06→15:57)
[2016-11-01] MEDS: metroNIDAZOLE 250 mg/NS 50 ML IV SCH ×2 (06:05→15:58)
--- NOTE | 2016-11-01 06:35 | NUR ---
Closing Notes Patient resting in bed with eyes closed, easily aroused. Patient denies any acute distress or pain at this time. Breathing is even and unlabored on room air. IV site patent/clean/dry, no S/S infection/infiltration noted. ZAHIRA draining to compression, total output 60ml for shift. ZAHIRA dressing changed due to soiling. Patient remains NPO since midnight for procedure today, patient verbalizes understanding. Needs addressed throughout shift. Call light in hand, fall precautions in place. Will continue to monitor for changes and safety, and endorse all patient care/needs to oncoming nurse.
--- NOTE | 2016-11-01 07:50 | NUR ---
Opening Note Report received from Oscar MILLS. Patient is currently in stable condition and resting in bed. Patient is NPO for an ERCP today. IV is on the right hand 24g running NS@75ml/hr. Call light is within reach. Bed is in low position. Will continue to monitor.
[2016-11-01 08:00] VITALS: BP_SYST 162
[2016-11-01 08:07] LABS: INR 1.3 (0.8-1.2); PROTHROMBIN TIME 14.3 SECS (9.5-12.5)
[2016-11-01] MEDS: PANTOPRAZOLE SODIUM 40 MG TAB PO SCH (09:21)
[2016-11-01] MEDS: levETIRAcetam 500 MG TABLET PO SCH (09:21)
--- NOTE | 2016-11-01 10:20 | NUR ---
Rounds Patient is currently resting in bed. Call light is within reach.
[2016-11-01 11:35] VITALS: BP_SYST 156
--- NOTE | 2016-11-01 12:30 | NUR ---
Rounds Patient is currently resting in bed. No signs of distress noted.
[2016-11-01] MEDS ORDERED: PROPOFOL 200MG/ 20ML VIAL (DIPRIVAN) IV ONE (13:00)
--- NOTE | 2016-11-01 13:06 | NUR ---
Off unit Patient currently left the unit via bed and accompanied by research laboratory technician.
[2016-11-01] MEDS ORDERED: IOHEXOL 50 ML IV ONE (13:40)
[2016-11-01] MEDS ORDERED: LR 1,000 ML IV SCH (13:54)
[2016-11-01] MEDS ORDERED: HYDROmorphone 1 MG INJ. 1 MG/ML AMPUL IVP PRN (14:00)
[2016-11-01] MEDS ORDERED: ONDANSETRON HCL 4 MG/2 ML VIAL IVP PRN (14:00)
[2016-11-01] MEDS ORDERED: HYDROmorphone 2 MG/ML VIAL IVP PRN ×2 (14:00)
[2016-11-01] MEDS ORDERED: MEPERIDINE HCL/PF 25 MG/ML DISP.SYRIN IVP PRN ×2 (14:00)
--- NOTE | 2016-11-01 15:05 | NUR ---
Opening Note Report received from Oscar MILLS. Patient is in stable condition. NPO for ERCP today. IV is on the right hand 24g running NS@ 75ml/hr. Abdominal incision have a small amount of red drainage. ZAHIRA is draining red fluid. Will continue to monitor. Addendum: 11/01/16 at 1508 by Fang Lama RN incorrect time 0800
[2016-11-01 15:30] VITALS: BP_SYST 159
--- NOTE | 2016-11-01 16:15 | NUR ---
Rounds Patient is back on the unit. ERCP was not done due to machine malfunction. Will call Dr. Grimes.
--- NOTE | 2016-11-01 16:30 | NUR ---
Spoke with Spoke with Dr. Grimes. stated to transfer to contracted facility. stated to keep patient NPO and on the same IV fluids. Will follow up.
--- NOTE | 2016-11-01 18:30 | NUR ---
Closing Note Patient is in stable condition and currently waiting to be transferred to a contracted facility. Will give report to the oncoming shift.
[2016-11-01] MEDS: NACL 0.9% 1,000 ML IV SCH (18:39)
--- NOTE | 2016-11-01 19:25 | NUR ---
initial nursing notes: Patient awake in bed. Patient watching television. Per ambulance, patient will be picked up by 8pm. Patient getting ready to be transferred. Patient denies of having pain.
--- NOTE | 2016-11-01 19:40 | NUR ---
Patient's Transfer Spoke with Arnel with case management for [facility], pt will be transferred at 2000 via [facility] and will go to [facility] room 416-A. Report given to Tr. Updated patient with plan of care and pt verbalized understanding.
--- NOTE | 2016-11-01 20:30 | NUR ---
Ambulance Follow-up Spoke with Esther at [facility] regarding ETA of ambulance for patient transfer. Esther stated that there is no authorization from insurance for patient's transfer and ambulance was cancelled. Called Arnel with [facility] case management, Arnel stated she was told there was authorization and she would follow up. Awaiting call back from Arnel.
--- NOTE | 2016-11-01 21:25 | NUR ---
nursing rounds: Patient ambulates with a walker. No falls and no injuries noted.
--- NOTE | 2016-11-01 22:30 | NUR ---
Update on Transfer: Called Arnel with [facility] for an update on patient's transfer. Arnel stated that [facility] will be the new ambulance and the new warp picker time is 2330. Updated patient with plan of care and pt verbalized understanding. Called Kirsten at [facility] and updated on patient's transfer as well.
--- NOTE | 2016-11-01 23:25 | NUR ---
nursing rounds: Patient watching television while waiting for the ambulance pick-up.
[2016-11-01] MEDS ORDERED: SUCCINYLCHOLINE CHLORIDE 20 MG/ML(QUELICIN) IVP ONE (23:47)
[2016-11-01] MEDS ORDERED: MIDAZOLAM HCL 5 MG/5 ML VIAL IVP ONE (23:47)
[2016-11-01] MEDS ORDERED: METOPROLOL TARTRATE 5 MG/5 ML VIAL IVP ONE (23:47)
[2016-11-01] MEDS ORDERED: MEPERIDINE HCL/PF 100 MG/ML AMP IM ONE (23:47)
[2016-11-01] MEDS ORDERED: SEVOFLURANE 15 MIN GAS INH ONE (23:47)
--- NOTE | 2016-11-01 23:52 | NUR ---
PT TRANSFERRED Report given to Tr (charge nurse) at [facility] by Eva RN (charge nurse). Transfer packet with Transfer Orders and Medication Reconciliation form given to EMT ([facility]) with report. [facility] ID band removed, replaced with ID band with pt's name and . IV catheter intact. All belongings sent with patient. Patient left floor via gurney escorted by EMT in no distress.
== END 2016-11-01 23:48 | disposition short-term general hospital (02) | DRG 854 ==
LOC: SED 19:53 → SMU 23:12
PROVIDERS: ADMIT Internal Medicine Hospice and Palliative Medicine; ATTEND Internal Medicine Hospice and Palliative Medicine
PROC: 0FT44ZZ Resection of Gallbladder, Percutaneous Endoscopic Approach (ICD-10-PCS; 2016-10-28)
PROC: 0FB04ZX Excision of Liver, Percutaneous Endoscopic Approach, Diagnostic (ICD-10-PCS; 2016-10-28)
PROC: BF121ZZ Fluoroscopy of Gallbladder using Low Osmolar Contrast (ICD-10-PCS; principal; 2016-10-28 17:30)
PROC: 0DJ08ZZ Inspection of Upper Intestinal Tract, Via Natural or Artificial Opening Endoscopic (ICD-10-PCS; 2016-11-01)
DX: A41.9 Sepsis, unspecified organism (principal); K80.63 Calculus of gallbladder and bile duct with acute cholecystitis with obstruction; N39.0 Urinary tract infection, site not specified; L02.211 Cutaneous abscess of abdominal wall; K57.20 Diverticulitis of large intestine with perforation and abscess without bleeding; I10 Essential (primary) hypertension; E11.9 Type 2 diabetes mellitus without complications; G40.909 Epilepsy, unspecified, not intractable, without status epilepticus; R74.0 Nonspecific elevation of levels of transaminase and lactic acid dehydrogenase [LDH]; R16.0 Hepatomegaly, not elsewhere classified; K52.9 Noninfective gastroenteritis and colitis, unspecified; E66.9 Obesity, unspecified; N20.0 Calculus of kidney; Z90.10 Acquired absence of unspecified breast and nipple; Z90.49 Acquired absence of other specified parts of digestive tract; Z68.32 Body mass index [BMI] 32.0-32.9, adult; Z79.82 Long term (current) use of aspirin; Z79.899 Other long term (current) drug therapy; Z86.73 Personal history of transient ischemic attack (TIA), and cerebral infarction without residual deficits
CPT/HCPCS: 36415; 71010; 74181; 76000; 76700-TC; 78226; 80048; 80053; 80076; 81000-TC; 82150-TC; 82962; 83605; 83690-TC; 85025; 85610-TC; 85730-TC; 86886; 86900; 86901; 87040-TC; 87081; 87086; 88304; 88305; 88307; 88313; 93005; 94010; 94760; 96365; 96375; 99285; A9537; C1727; C1769; J0330; J0696; J1100; J1815; J1885; J2175; J2250; J2270; J2543; J2550; J2704; J2765; J3010; J3480; J3490; J7030; J7050; J7060; J7120; Q9967

== ENCOUNTER 2016-11-23 16:51 | Inpatient (IN) | payer OTHER ==
[~2016-11-23] VITALS: Ht 154.9 cm; Wt 72.6 kg
[~2016-11-23 16:51] MED LIST changes: +LOSA50TA3 PO
[2016-11-23 17:09] VITALS: BP_SYST 118
[2016-11-23] MEDS ORDERED: NACL 0.9% 1,000 ML IV ONE ×2 (18:00→19:45)
[2016-11-23] MEDS ORDERED: ONDANSETRON HCL 4 MG/2 ML VIAL IVP ONE (18:00)
[2016-11-23] MEDS ORDERED: MORPHINE 4 MG/ML INJ. SYRINGE IVP ONE ×2 (18:00→18:45)
[2016-11-23 18:22] LABS: HEMATOCRIT 47.9 % (36-48); HEMOGLOBIN 15.1 g/dL (12.0-16.0); MEAN CORPUSCULAR HEMOGLOBIN 26 pg (27-31); MEAN CORPUSCULAR HGB CONC 32 % (32-36); MEAN CORPUSCULAR VOLUME 82 fL (79.0-98.0); PLATELET COUNT (AUTO) 425 K/uL (130-430); RED BLOOD CELL COUNT(AUTO) 5.83 MIL/uL (4.2-6.2); RED CELL DISTRIBUTION WIDTH 15.9 % (9.0-15.0); WHITE BLOOD COUNT (AUTO) 19.4 K/uL (4.8-10.8)
[2016-11-23 18:31] LABS: ANION GAP 18 (5-15); CALCIUM 9.5 mg/dL (8.4-11.0); CHLORIDE 100 mmol/L (98-107); CREATININE 1.11 mg/dL (0.55-1.30); GLUCOSE 198 mg/dL (70-99); POTASSIUM 3.8 mmol/L (3.5-5.1); SODIUM SERUM 137 mmol/L (136-145); UREA NITROGEN, BLOOD 24 mg/dL (8-21)
[2016-11-23 18:33] LABS: INR 1.2 (0.8-1.2); PROTHROMBIN TIME 13.4 SECS (9.5-12.5)
[2016-11-23 18:36] LABS: ALANINE AMINOTRANSFERASE 31 U/L (12-78); ALBUMIN 3.1 g/dL (3.4-4.8); ASPARTATE AMINOTRANSFERASE 41 U/L (10-37); LIPASE 124 U/L (73-393); TOTAL BILIRUBIN 0.8 mg/dL (0.0-1.0); TOTAL PROTEIN, SERUM 7.7 g/dL (6.4-8.3)
[2016-11-23 18:52] LABS: ATYPICAL LYMPHOCYTES % 0 % (0-0); BAND % (MANUAL) 21 % (0-6); BASOPHILS % (MANUAL) 0 % (0-2); EOSINOPHILS % (MANUAL) 0 % (0-7); LYMPHOCYTES % (MANUAL) 8 % (20-46); MONOCYTES % (MANUAL) 4 % (0-11)
[2016-11-23 19:15] LABS: BILIRUBIN,URINE 2+ (NEGATIVE); BLOOD, URINE NEGATIVE (NEGATIVE); CLARITY/URINE SL HAZY (CLEAR); COLOR,URINE YELLOW (YELLOW); GLUCOSE,URINE NEGATIVE (NEGATIVE); KETONES,URINE 1+ (NEGATIVE); LEUKOCYTE ESTERASE ,URINE NEGATIVE (NEGATIVE); NITRITE, URINE NEGATIVE (NEGATIVE); PH,URINE 5.5 (5.0-8.0); PROTEIN URINE 1+ (NEGATIVE)
[2016-11-23 19:32] LABS: BACTERIA,URINE FEW /HPF (None Seen); RBC,URINE 0-3 /HPF (0-3); URINE AMORPHOUS URATE 2+ /HPF (None Seen); WBC,URINE 0-3 /HPF (0-3)
[2016-11-23 19:33] LABS: FINE GRANULAR CASTS,URINE 0-10 /LPF (None Seen); MUCUS,URINE 2+ /LPF (None Seen)
[2016-11-23] MEDS ORDERED: metroNIDAZOLE 500 mg/NS 100 ML IV ONE (19:45)
[2016-11-23] MEDS ORDERED: GENTAMICIN 120 mg/100 mL NS 100 ML IV ONE (19:45)
[2016-11-23] MEDS ORDERED: PIPERACILLIN/TAZO 3.375 GM in NS 50 ML IV ONE (19:45)
[2016-11-23] MEDS ORDERED: LEVE500T13 PO (20:37)
[2016-11-23] MEDS ORDERED: PIPERACILLIN/TAZOBACTAM 3.375 GM/VIAL (ZOSYN) IV ONE (20:38)
[2016-11-23 21:00] VITALS: BP_SYST 67
[2016-11-23] MEDS ORDERED: NS 250 ML IV ONE (21:30)
[2016-11-23] MEDS: NACL 0.9% 1,000 ML IV SCH ×2 (21:32→21:37)
[2016-11-23 21:46] VITALS: BP_SYST 110
[2016-11-23 22:00] VITALS: BP_SYST 66
[2016-11-23] MEDS ORDERED: MORPHINE 2 MG/ML INJ. SYRINGE IVP SCH (22:00)
[2016-11-23] MEDS ORDERED: SITA1TAB9 PO (22:14)
[2016-11-23] MEDS ORDERED: ONDA4TAB5 PO (22:14)
[2016-11-23] MEDS ORDERED: MEGE400O PO (22:14)
[2016-11-23] MEDS ORDERED: OMEP20CA10 PO (22:14)
[2016-11-23] MEDS: MORPHINE 2 MG/ML INJ. SYRINGE ONE ×2 (22:14→22:16)
[2016-11-24] MEDS ORDERED: PIPERACILLIN/TAZO 3.375 GM in NS 50 ML IV SCH (06:00)
[2016-11-24] MEDS ORDERED: metroNIDAZOLE 500 mg/NS 100 ML IV SCH (06:00)
== END 2016-11-23 23:52 | disposition expired | DRG 871 ==
LOC: SED 16:51 → SIC 20:17
PROVIDERS: ADMIT Internal Medicine; ATTEND Internal Medicine
PROC: 5A09357 Assistance with Respiratory Ventilation, Less than 24 Consecutive Hours, Continuous Positive Airway Pressure (ICD-10-PCS; principal; 2016-11-23)
DX: A41.9 Sepsis, unspecified organism (principal); R65.21 Severe sepsis with septic shock; K56.60 Unspecified intestinal obstruction; C23 Malignant neoplasm of gallbladder; C78.5 Secondary malignant neoplasm of large intestine and rectum; Z66 Do not resuscitate; I10 Essential (primary) hypertension; E78.00 Pure hypercholesterolemia, unspecified; Z51.5 Encounter for palliative care; Z90.49 Acquired absence of other specified parts of digestive tract; Z86.73 Personal history of transient ischemic attack (TIA), and cerebral infarction without residual deficits; Z88.8 Allergy status to other drugs, medicaments and biological substances; Z79.899 Other long term (current) drug therapy; Z60.2 Problems related to living alone
CPT/HCPCS: 36415; 71010; 80053; 81000-TC; 83605; 83690-TC; 84484; 85007; 85027; 85610-TC; 85730-TC; 87040-TC; 93005; 94660; 96361; 96365; 96375; 96376; 99291; C1751; J1580; J2270; J2405; J2543; J3490; J7030